=== PATIENT | male | born 1970 | race Caucasian/White ===

== ENCOUNTER 2022-03-02 05:29 | Emergency (ER) | payer SELFPAY ==
[2022-03-02] MEDS ORDERED: Sodium Chloride 0.9% 1000 ML 1,000 ML IV STA (06:08)
[2022-03-02] MEDS ORDERED: Sodium Chloride 0.9% 1000 ML 1,000 ML ONE (06:14)
--- NOTE | 2022-03-02 06:31 | ERPHSYRPT ---
- History of Present Illness Source: patient Exam Limitations: no limitations Patient Subjective Stated Complaint: pt states "I have been having low blood pressure off and on. I woke up this morning and my blood pressure was 90s/70s." Triage Nursing Assessment: Pt ambulatory to bed by self, pt alert and oriented x3, pt c/o low bp and generalized symptoms for about a week, pt seen pcp for issue and was prescribed metoprolol and taken off other home medications, pt denies any chest pain and sob Timing/Duration: day(s) (6), week(s), intermittent, worse Severity: moderate Associated Symptoms: fever, other (Intermittent lightheadedness) Hx Tetanus, Diphtheria Vaccination/Date Given: Yes (UP TO DATE) Hx Influenza Vaccination/Date Given: No Hx Pneumococcal Vaccination/Date Given: No Immunizations Up to Date: Yes <MADELINE BRAVO - Last Filed: 03/02/22 06:10> <WANG ARAMBULA - Last Filed: 03/02/22 16:48> - History of Present Illness Time Seen by Provider: 03/02/22 05:45 Physician History: 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 In the last couple of weeks patient was feeling as though he had a chest tightness and just was feeling weak and tired. He saw his primary care physician 6 days ago and metoprolol was added to the regimen. Since the medication was added to the patient's regimen, patient states that he is felt worse and more fatigued still with intermittent chest tightness. He is also noticed when he stands up he becomes dizzy and lightheaded. This morning, he got up out of bed and took his blood pressure and it was 90s over 70s with a heart rate of 61. He is not short of breath. He has no flulike symptoms. (MADELINE BRAVO) Allergies/Adverse Reactions: No Known Drug Allergies Allergy (Verified 03/02/22 05:37) Home Medications: Irbesartan/Hydrochlorothiazide [Irbesartan-Hctz 150-12.5 mg Tb] 1 tab PO DAILY 03/02/22 [History] Metoprolol Succinate 50 mg [Toprol Xl 50 MG] 50 mg PO DAILY 03/02/22 [History] Travel Risk - International Travel Have you traveled outside of the country in past 3 weeks: No - Coronavirus Screening Are you exhibiting any of the following symptoms?: No Close contact with a COVID-19 positive Pt in past 14-21 Days: No - Vaccine Status Have you recieved a Covid-19 vaccination: No <MADELINE BRAVO - Last Filed: 03/02/22 06:10> - Review of Systems Constitutional: Fatigue, Weakness Eyes: No Symptoms Ears, Nose, & Throat: No Symptoms Respiratory: No Symptoms Cardiac: Chest Pain (Described as a central tightness without radiation) Abdominal/Gastrointestinal: No Symptoms Genitourinary Symptoms: No Symptoms Musculoskeletal: No Symptoms Skin: No Symptoms Neurological: No Symptoms Psychological: No Symptoms Endocrine: No Symptoms Hematologic/Lymphatic: No Symptoms Immunological/Allergic: No Symptoms All Other Systems: Reviewed and Negative <MADELINE BRAVO - Last Filed: 03/02/22 06:10> - Past Medical History Pertinent Past Medical History: Yes Neurological History: No Pertinent History ENT History: No Pertinent History Cardiac History: Hypertension Respiratory History: No Pertinent History Musculoskeletal History: No Pertinent History GI Medical History: No Pertinent History History: No Pertinent History Psycho-Social History: No Pertinent History Male Reproductive Disorders: No Pertinent History - Past Surgical History Past Surgical History: Yes Musculoskeletal: Orthopedic Surgery Other Surgical History: LIVER BIOPSY - Social History Smoking Status: Never smoker Exposure to second hand smoke: No Drug Use: none Patient Lives Alone: No <MADELINE BRAVO - Last Filed: 03/02/22 06:10> - Physical Exam General Appearance: no apparent distress, alert, anxiety, obese Eye Exam: PERRL/EOMI, eyes nml inspection Ears, Nose, Throat Exam: normal ENT inspection, moist mucous membranes Neck Exam: normal inspection, non-tender, supple, full range of motion Respiratory Exam: normal breath sounds, chest tenderness, lungs clear, airway intact, No respiratory distress Cardiovascular Exam: regular rate/rhythm, normal heart sounds, normal peripheral pulses Gastrointestinal/Abdomen Exam: soft, normal bowel sounds, No tenderness Rectal Exam: not done Back Exam: normal inspection, normal range of motion, No CVA tenderness, No vertebral tenderness Extremity Exam: normal inspection, normal range of motion, pelvis stable Neurologic Exam: alert, oriented x 3, cooperative, complex case manager II-XII nml as tested, normal mood/affect, nml cerebellar function, nml station & gait, sensation nml Skin Exam: normal color, warm, dry Lymphatic Exam: No adenopathy SpO2 Interpretation: normal SpO2: 97 O2 Delivery: Room Air <MADELINE BRAVO - Last Filed: 03/02/22 06:10> - Nursing Vital Signs Nursing Vital Signs: Initial Vital Signs Temperature 97.6 F 03/02/22 05:38 Pulse Rate 63 03/02/22 05:38 Respiratory Rate 18 03/02/22 05:38 Blood Pressure 106/74 03/02/22 05:38 O2 Sat by Pulse Oximetry 97 03/02/22 05:38 Pain Scale Pain Intensity 0 - Course Nursing assessment & vital signs reviewed: Yes EKG Interpreted by Me: RATE (53), Sinus Rhythm, NORMAL AXIS, NORMAL INTERVALS, NORMAL QRS, NORMAL ST-T, Other (No acute ischemic changes on today's EKG. No comparison twelve-lead EKG available.) <MADELINE BRAVO - Last Filed: 03/02/22 06:10> Ordered Tests: Active Orders 24 hr Category Date Time Status EKG-ER Only STAT Care 03/02/22 06:08 Active IV Insertion STAT Care 03/02/22 06:08 Active Pulse Oximetry (ED) STAT Care 03/02/22 06:08 Active CBC W DIFF Stat Lab 03/02/22 06:30 Completed CMP Stat Lab 03/02/22 06:30 Completed D-DIMER QUANTITATIVE Stat Lab 03/02/22 06:30 Completed NT PRO BNP Stat Lab 03/02/22 06:30 Completed TROPONIN Q4H Lab 03/02/22 06:30 Completed TROPONIN Q4H Lab 03/02/22 10:15 Completed TROPONIN Q4H Lab 03/02/22 14:33 Completed UA W/RFX CULTURE Stat Lab 03/02/22 06:11 Completed Transfer Order Routine Transfer 03/02/22 Ordered Medication Summary Discontinued Medications Generic Name Dose Route Start Last Admin Trade Name Freq PRN Reason Stop Dose Admin Aspirin 324 mg 03/02/22 16:03 03/02/22 16:33 Aspirin 81 Mg Tab.Chew PO 03/02/22 16:04 324 mg STAT ONE Administration Sodium Chloride 1,000 mls @ 999 mls/hr 03/02/22 06:08 03/02/22 07:26 Sodium Chloride 0.9% 1000 Ml IV 03/02/22 07:08 Infused .Q1H1M STA Infusion Sodium Chloride Confirm 03/02/22 06:14 Sodium Chloride 0.9% 1000 Ml Administered 03/02/22 06:15 Dose 1,000 mls @ ud .ROUTE .STK-MED ONE Lab/Rad Data: Laboratory Result Diagrams 03/02/22 06:30 03/02/22 06:30 Laboratory Results 03/02/22 03/02/22 03/02/22 Range/Units 14:33 14:00 10:15 WBC (4.0-10.5) x10^3/uL RBC (4.1-5.6) x10^6/uL Hgb (12.5-18.0) g/dL Hct (42-50) % MCV (78-100) fL MCH (26-32) pg MCHC (32-36) g/dL RDW (11.5-14.0) % Plt Count (150-450) x10^3/uL MPV (7.5-11.0) fL Gran % (36.0-66.0) % Immature Gran % (Auto) (0.00-0.4) % Nucleat RBC Rel Count (0.00-0.1) % Eos # (Auto) (0-0.5) x10^3/uL Immature Gran # (Auto) (0.00-0.03) x10^3u/L Absolute Lymphs (auto) (1.0-4.6) x10^3/uL Absolute Monos (auto) (0.0-1.3) x10^3/uL Absolute Nucleated RBC (0.00-0.01) x10^3u/L Lymphocytes % (24.0-44.0) % Monocytes % (0.0-12.0) % Eosinophils % (0.00-5.0) % Basophils % (0.0-0.4) % Absolute Granulocytes (1.4-6.9) x10^3/uL Basophils # (0-0.4) x10^3/uL D-Dimer (0.0-0.50) mg/L Sodium (137-145) mmol/L Potassium (3.5-5.1) mmol/L Chloride (98-107) mmol/L Carbon Dioxide (22-30) mmol/L Anion Gap (5-15) MEQ/L BUN (9-20) mg/dL Creatinine (0.66-1.25) mg/dL Estimated GFR ML/MIN Glucose (74-106) mg/dL Calcium (8.4-10.2) mg/dL Total Bilirubin (0.2-1.3) mg/dL AST (17-59) U/L ALT (0-50) U/L Alkaline Phosphatase (38-126) U/L Troponin I < 0.012 < 0.012 (0.000-0.034) ng/mL NT-Pro-B Natriuret Pep (0-900) pg/mL Serum Total Protein (6.3-8.2) g/dL Albumin (3.5-5.0) g/dL Urinalys Dipstick Clnc Urine Color (YELLOW) Urine Appearance (CLEAR) Urine pH (5-6) Ur Specific [place] (1.005-1.025) POC Urine Protein Conf (Negative) Urine Ketones (NEGATIVE) Urine Nitrite (NEGATIVE) Urine Bilirubin (NEGATIVE) Urine Urobilinogen (0-1) mg/dL Urine Leukocytes (NEGATIVE) Urine WBC (Auto) (0-5) /HPF Urine RBC (Auto) (0-2) /HPF U Epithel Cells (Auto) (FEW) /HPF Urine Bacteria (Auto) (NEGATIVE) /HPF Urine RBC (0-5) Tripp/ul Urine Mucus (Auto) (NEGATIVE) /HPF Ur Culture Indicated? Urine Glucose (NEGATIVE) mg/dL Influenza Type A Ag NEGATIVE (NEGATIVE) Influenza Type B Ag NEGATIVE (NEGATIVE) RSV (PCR) NEGATIVE (Negative) SARS-CoV-2 (PCR) NEGATIVE (NEGATIVE) 03/02/22 03/02/22 03/02/22 Range/Units 06:30 06:30 06:30 WBC (4.0-10.5) x10^3/uL RBC (4.1-5.6) x10^6/uL Hgb (12.5-18.0) g/dL Hct (42-50) % MCV (78-100) fL MCH (26-32) pg MCHC (32-36) g/dL RDW (11.5-14.0) % Plt Count (150-450) x10^3/uL MPV (7.5-11.0) fL Gran % (36.0-66.0) % Immature Gran % (Auto) (0.00-0.4) % Nucleat RBC Rel Count (0.00-0.1) % Eos # (Auto) (0-0.5) x10^3/uL Immature Gran # (Auto) (0.00-0.03) x10^3u/L Absolute Lymphs (auto) (1.0-4.6) x10^3/uL Absolute Monos (auto) (0.0-1.3) x10^3/uL Absolute Nucleated RBC (0.00-0.01) x10^3u/L Lymphocytes % (24.0-44.0) % Monocytes % (0.0-12.0) % Eosinophils % (0.00-5.0) % Basophils % (0.0-0.4) % Absolute Granulocytes (1.4-6.9) x10^3/uL Basophils # (0-0.4) x10^3/uL D-Dimer < 0.19 (0.0-0.50) mg/L Sodium 135 L (137-145) mmol/L Potassium 3.5 (3.5-5.1) mmol/L Chloride 104 (98-107) mmol/L Carbon Dioxide 26 (22-30) mmol/L Anion Gap 8.6 (5-15) MEQ/L BUN 19 (9-20) mg/dL Creatinine 0.69 (0.66-1.25) mg/dL Estimated GFR > 60.0 ML/MIN Glucose 117 H (74-106) mg/dL Calcium 8.5 (8.4-10.2) mg/dL Total Bilirubin 1.00 (0.2-1.3) mg/dL AST 98 H (17-59) U/L ALT 121 H (0-50) U/L Alkaline Phosphatase 85 (38-126) U/L Troponin I < 0.012 (0.000-0.034) ng/mL NT-Pro-B Natriuret Pep 85.2 (0-900) pg/mL Serum Total Protein 6.2 L (6.3-8.2) g/dL Albumin 3.5 (3.5-5.0) g/dL Urinalys Dipstick Clnc Urine Color (YELLOW) Urine Appearance (CLEAR) Urine pH (5-6) Ur Specific [place] (1.005-1.025) POC Urine Protein Conf (Negative) Urine Ketones (NEGATIVE) Urine Nitrite (NEGATIVE) Urine Bilirubin (NEGATIVE) Urine Urobilinogen (0-1) mg/dL Urine Leukocytes (NEGATIVE) Urine WBC (Auto) (0-5) /HPF Urine RBC (Auto) (0-2) /HPF U Epithel Cells (Auto) (FEW) /HPF Urine Bacteria (Auto) (NEGATIVE) /HPF Urine RBC (0-5) Trpip/ul Urine Mucus (Auto) (NEGATIVE) /HPF Ur Culture Indicated? Urine Glucose (NEGATIVE) mg/dL Influenza Type A Ag (NEGATIVE) Influenza Type B Ag (NEGATIVE) RSV (PCR) (Negative) SARS-CoV-2 (PCR) (NEGATIVE) 03/02/22 03/02/22 Range/Units 06:30 06:11 WBC 5.5 (4.0-10.5) x10^3/uL RBC 5.13 (4.1-5.6) x10^6/uL Hgb 16.1 (12.5-18.0) g/dL Hct 47.4 (42-50) % MCV 92.4 (78-100) fL MCH 31.4 (26-32) pg MCHC 34.0 (32-36) g/dL RDW 12.3 (11.5-14.0) % Plt Count 197 (150-450) x10^3/uL MPV 8.9 (7.5-11.0) fL Gran % 49.7 (36.0-66.0) % Immature Gran % (Auto) 0.2 (0.00-0.4) % Nucleat RBC Rel Count 0.0 (0.00-0.1) % Eos # (Auto) 0.18 (0-0.5) x10^3/uL Immature Gran # (Auto) 0.01 (0.00-0.03) x10^3u/L Absolute Lymphs (auto) 1.93 (1.0-4.6) x10^3/uL Absolute Monos (auto) 0.59 (0.0-1.3) x10^3/uL Absolute Nucleated RBC 0.00 (0.00-0.01) x10^3u/L Lymphocytes % 35.0 (24.0-44.0) % Monocytes % 10.7 (0.0-12.0) % Eosinophils % 3.3 (0.00-5.0) % Basophils % 1.1 (0.0-0.4) % Absolute Granulocytes 2.75 (1.4-6.9) x10^3/uL Basophils # 0.06 (0-0.4) x10^3/uL D-Dimer (0.0-0.50) mg/L Sodium (137-145) mmol/L Potassium (3.5-5.1) mmol/L Chloride (98-107) mmol/L Carbon Dioxide (22-30) mmol/L Anion Gap (5-15) MEQ/L BUN (9-20) mg/dL Creatinine (0.66-1.25) mg/dL Estimated GFR ML/MIN Glucose (74-106) mg/dL Calcium (8.4-10.2) mg/dL Total Bilirubin (0.2-1.3) mg/dL AST (17-59) U/L ALT (0-50) U/L Alkaline Phosphatase (38-126) U/L Troponin I (0.000-0.034) ng/mL NT-Pro-B Natriuret Pep (0-900) pg/mL Serum Total Protein (6.3-8.2) g/dL Albumin (3.5-5.0) g/dL Urinalys Dipstick Clnc MAIN LAB Urine Color YELLOW (YELLOW) Urine Appearance CLEAR (CLEAR) Urine pH 5.5 (5-6) Ur Specific [place] >=1.030 (1.005-1.025) POC Urine Protein Conf NEGATIVE (Negative) Urine Ketones NEGATIVE (NEGATIVE) Urine Nitrite NEGATIVE (NEGATIVE) Urine Bilirubin SMALL (NEGATIVE) Urine Urobilinogen 1 (0-1) mg/dL Urine Leukocytes NEGATIVE (NEGATIVE) Urine WBC (Auto) NONE (0-5) /HPF Urine RBC (Auto) NONE (0-2) /HPF U Epithel Cells (Auto) NONE (FEW) /HPF Urine Bacteria (Auto) NONE (NEGATIVE) /HPF Urine RBC NEGATIVE (0-5) Tripp/ul Urine Mucus (Auto) SLIGHT (NEGATIVE) /HPF Ur Culture Indicated? NO Urine Glucose NEGATIVE (NEGATIVE) mg/dL Influenza Type A Ag (NEGATIVE) Influenza Type B Ag (NEGATIVE) RSV (PCR) (Negative) SARS-CoV-2 (PCR) (NEGATIVE) - Progress Progress: improved Counseled pt/family regarding: lab results, diagnosis, need for follow-up <MADELINE BRAVO - Last Filed: 03/02/22 06:10> <WANG ARAMBULA - Last Filed: 03/02/22 16:48> - Progress Progress Note: 03/02/22 06:36 Medical decision making: This this patient's care transferred to Dr. Wang Arambula at shift change. He will follow-up on lab results and make final disposition. (MADELINE BRAVO) Of patient symptomology, age and other cardiovascular risk factors I advised admission. I spoke to patient's primary care doctor who agrees. However Dr. Martinez advises transfer to higher level of care for formal cardiology evaluation. At this point transfer has been declined by [facility] as well as regional. I spoke to clerical investigator at [facility] who will accept patient however he states there are no beds immediately available. He states the wait can be hours to possibly days. However reviewed his medication profile and he advised to discontinue the metoprolol. So we will hold metoprolol dosing in our ED as patient has not taken his metoprolol today at this point 03/02/22 09:29 Patient accepted to [facility] by Dr. Robles. After several hours of weight we decided to admit patient to our floor. [facility] called and advises that a bed was available. Patient refused transfer. Risks and benefits of transfer discussed. Risk and benefits of transport via private vehicle was discussed. Spite of his risk patient states that he will not take an ambulance to [facility]. He will only drive himself. Troponin negative. Work-up at this point is negative. Blood pressure appears to have improved currently 115/76. Patient has no active complaints. at bedside. She would drive patient to [facility] for further evaluation and treatment. Portions of this note were created with voice recognition technology. There may be grammatical, spelling, punctuation or sound alike errors 03/02/22 16:46 (WANG ARAMBULA) - Departure Departure Disposition: Home Critical Care Time: No <MADELINE BRVAO - Last Filed: 03/02/22 06:10> - Departure Departure Disposition: Transfer <WANG ARAMBULA - Last Filed: 03/02/22 16:48> - Departure Clinical Impression: Bradycardia, Chest tightness, Hypotension, Medication side effect, Dizziness Condition: Fair Referrals: ERWIN MARTINEZ MD [Primary Care Provider] - Follow up/PCP as directed
[2022-03-02 06:33] LABS: Absolute Neutrophil Ct (ANC) 2.75 x10^3/uL (1.4-6.9); Basophil (Absolute #) 0.06 x10^3/uL (0-0.4); Eosinophil % 3.3 % (0.00-5.0); Eosinophil (Absolute #) 0.18 x10^3/uL (0-0.5); Hematocrit 47.4 % (42-50); Hemoglobin 16.1 g/dL (12.5-18.0); Lymphocyte (Absolute #) 1.93 x10^3/uL (1.0-4.6); Mean Cell Volume 92.4 fL (78-100); Mean Corpuscular Hemoglobin 31.4 pg (26-32); Mean Platelet Volume 8.9 fL (7.5-11.0); Monocyte (Absolute #) 0.59 x10^3/uL (0.0-1.3); Monocytes % 10.7 % (0.0-12.0); Neutrophil % 49.7 % (36.0-66.0); Platelet Count 197 x10^3/uL (150-450); Red Blood Count 5.13 x10^6/uL (4.1-5.6); Red Cell Distribution Width 12.3 % (11.5-14.0); White Blood Count 5.5 x10^3/uL (4.0-10.5)
[2022-03-02 07:00] LABS: ALBUMIN 3.5 g/dL (3.5-5.0); ALKALINE PHOSPHATASE 85 U/L (38-126); ANION GAP 8.6 MEQ/L (5-15); BLOOD UREA NITROGEN 19 mg/dL (9-20); CHLORIDE 104 mmol/L (98-107); Calcium 8.5 mg/dL (8.4-10.2); Carbon Dioxide 26 mmol/L (22-30); Creatinine 1 0.69 mg/dL (0.66-1.25); EST GLOMERULAR FILTRATION RATE > 60.0 ML/MIN; Glucose 117 mg/dL (74-106); NT PRO BNP 85.2 pg/mL (0-900); Potassium 3.5 mmol/L (3.5-5.1); SGOT/AST 98 U/L (17-59); SGPT/ALT 121 U/L (0-50); SODIUM 135 mmol/L (137-145); Total Protein 6.2 g/dL (6.3-8.2)
[2022-03-02 08:25] LABS: Mucus SLIGHT /HPF (NEGATIVE)
[2022-03-02 08:27] LABS: Appearance CLEAR (CLEAR); Bilirubin SMALL (NEGATIVE); Dipstick done @ ? MAIN LAB; Glucose NEGATIVE (NEGATIVE); Ketones NEGATIVE (NEGATIVE); Nitrite NEGATIVE (NEGATIVE); Ph 5.5 (5-6); Protein,Urine Dip NEGATIVE (Negative); RBC NEGATIVE Ery/ul (0-5); Specific Gravity >=1.030 (1.005-1.025); Urobilinogen 1 mg/dL (0-1)
[2022-03-02 08:30] LABS: Urine Cultured Indicated? NO
[2022-03-02 15:51] LABS: INFLUENZA A NEGATIVE (NEGATIVE); INFLUENZA B NEGATIVE (NEGATIVE); RESPIRATORY SYNCTIAL VIRUS NEGATIVE (Negative); SARS-CoV-2 Xpert Express NEGATIVE (NEGATIVE)
[2022-03-02] MEDS ORDERED: BABY ASPIRIN 81 MG CHEW PO ONE (16:03)
[2022-03-02 17:09] VITALS: BP 115/76; PULSE 66; O2SAT 97
== END 2022-03-02 16:40 | disposition short-term general hospital (02) ==
LOC: ED 05:29
DX: R07.9 Chest pain, unspecified (principal); R00.1 Bradycardia, unspecified; R42 Dizziness and giddiness; I95.2 Hypotension due to drugs; T44.7X5A Adverse effect of beta-adrenoreceptor antagonists, initial encounter; I10 Essential (primary) hypertension; R53.83 Other fatigue; Z79.899 Other long term (current) drug therapy; Z28.310 Unvaccinated for COVID-19
CPT/HCPCS: 0241U; 36000; 36415; 80053; 81015; 83880; 84484; 85025; 85379; 93005; 94760; 99285; A9270-GY